=== PATIENT | female | born 2000 | race Caucasian/White ===

== ENCOUNTER 2021-02-21 15:16 | Outpatient (REF) | payer OTHER, SELFPAY ==
[2021-02-21 16:00] LABS: Binax Now Covid-19 Ag Negative (Negative)
[2021-02-21 16:01] LABS: Binax Internal Control QC Valid
== END 2021-02-21 15:17 | disposition home or self-care (01) ==
LOC: HO.LAB 15:16
PROVIDERS: Visit Provider Internal Medicine
DX: Z20.822 Contact with and (suspected) exposure to COVID-19 (principal)
CPT/HCPCS: C9803